=== PATIENT | male | born 1975 | race Caucasian/White ===

== ENCOUNTER 2023-07-16 14:31 | Outpatient (OUT) | payer OTHER, SELFPAY ==
--- NOTE | 2023-07-16 14:53 | MR_ITS ---
The [address] [address] Patient Name: HAIR MUSTAFA MRN: [id number] date: 1975 Sex: M Assigned Patient Location: MRI Current Patient Location: MRI Accession/Order Number: [id number] Exam Date: 07/16/2023 14:56 Report Date: 07/16/2023 16:29 At the request of: MARIE ABBOTT Procedure: MR knee RT wo con EXAM: MR knee RT wo con REASON FOR EXAM: Internal Derangement Of Right Knee M23.91. TECHNIQUE: Multiplanar, multisequence imaging of the right knee was performed without contrast COMPARISON: None. FINDINGS: Laterally, the iliotibial band, fibular collateral ligament, popliteus tendon and biceps tendon are intact. The ACL is intact. The lateral meniscus demonstrates free edge radial tear involving the lateral meniscal body. No displaced meniscal fragment identified. Intermediate grade chondrosis of the lateral compartment. Medially, the medial collateral ligament is intact. The PCL is intact. There is radial tear involving the posterior horn body junction of the medial meniscus with flipped displaced meniscal fragment posteriorly within the joint space (series 6, images 8-10). The root appears intact. There is also horizontal tear involving the body of the medial meniscus. Intermediate to high-grade chondrosis of the medial compartment with high-grade chondrosis involving the majority the central weightbearing compartment. Marginal osteophytes are present. Subchondral marrow edema is noted in the anterior medial tibial plateau. The extensor mechanism is intact. Intermediate to high-grade chondrosis of the patellofemoral cartilage. The bone marrow signal is without fracture. Moderate size joint effusion with synovial thickening is present consistent with synovitis. Intra-articular body is noted within the popliteus tendon sheath. The regional musculature is without muscle strain or tendon tear. MR/MR knee RT wo con IMPRESSION: 1. Large flap tear involving the body posterior horn junction the medial meniscus with displaced meniscal fragment posteriorly within the joint space. 2. Lateral meniscus tear. 3. 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 4. Joint effusion synovitis Electronically authenticated by: HAIR ONEILL Date: 07/16/2023 16:29
== END 2023-07-16 14:32 | disposition home or self-care (01) ==
LOC: MRI 14:34
PROVIDERS: PCP Family Medicine; Visit Provider Personal Emergency Response Attendant
DX: M23.91 Unspecified internal derangement of right knee (principal); S83.281A Other tear of lateral meniscus, current injury, right knee, initial encounter; S83.241A Other tear of medial meniscus, current injury, right knee, initial encounter
CPT/HCPCS: 73721